=== PATIENT | male | born 1980 | race Caucasian/White ===

== ENCOUNTER 2016-10-11 12:45 | Emergency (ER) | payer OTHER ==
[2016-10-11 13:03] VITALS: BP 132/78; PULSE 73; TEMP 98; BMI 28.1
[2016-10-11] MEDS ORDERED: ERYTHROMYCIN 0.5% OPHTHALMIC OINTMENT 3.5 GM TUBE ONE (13:31)
[2016-10-11] MEDS ORDERED: ERYTHROMYCIN 0.5% OPHTHALMIC OINTMENT 3.5 GM TUBE OS ONE (13:33)
--- NOTE | 2016-10-11 13:35 | PDOC ---
History of Present Illness - General Chief Complaint: Eye Problem Stated Complaint: LEFT EYE DISCOMFORT Time Seen by Provider: 10/11/16 13:00 - History of Present Illness Initial Comments: 36 year old male with PMH of anxiety and chronic pain (from sciatica) presenting with left eye pain, injection, and tearing for the past day. He was sanding some aluminum at approximately 13:00 on the day before presentation and then felt some strange sensation/ irritation in his left eye. He washed his eye with water and woke up with some eye irritation and pain that was refractory to further eye washing and Visine administration. He has some blurry vision in his right eye. He denies fevers, chills, nausea, vomiting, eye drainage, or other symptoms. He does not wear contacts or take any antibiotics. 10/11/16 13:30 10/11/16 14:28 10/11/16 14:33 Past History - Past Medical History Allergies/Adverse Reactions: Allergies Allergy/AdvReac Type Severity Reaction Status Date / Time No Known Allergies Allergy Verified 10/11/16 12:48 Home Medications: Ambulatory Orders Buprenorphine HCl/Naloxone HCl [Suboxone 8 mg-2 mg Sl Tablets] 1 each SL TID 07/23 Dextroamphetamine/Amphetamine [Adderall Xr 30 mg Capsule] 60 mg PO DAILY Gabapentin 300 mg PO TID 10/11/16 Ibuprofen 800 mg PO ASDIR 10/11/16 Tizanidine HCl 4 mg PO ASDIR 10/11/16 Psychiatric Problems: Yes (ANXIETY) Other medical history: , HERNIATED DISCS - Psycho/Social/Smoking Cessation Hx Anxiety: No Suicidal Ideation: No Smoking History: Current every day smoker Have you smoked in the past 12 months: Yes Number of Cigarettes Smoked Daily: 20 Information on smoking cessation initiated: Yes 'Breaking Loose' booklet given: 10/11/16 Hx Alcohol Use: No Review of Systems - Review of Systems Constitutional: No: Chills, Diaphoresis, Fever HEENTM: Yes: Eye Pain, Blurred Vision, Tearing Respiratory: No: Cough, Shortness of Breath, Productive cough Cardiac (ROS): No: Chest Pain, Edema ABD/GI: No: Constipated, Diarrhea, Nausea : No: Dysuria, Frequency Musculoskeletal: Yes: Back Pain, Joint Pain Integumentary: No: Bruising, Change in Color Psychiatric: Yes: Anxiety *Physical Exam - Vital Signs Last Vital Signs Temp Pulse Resp BP Pulse Ox 98 F 73 18 132/78 96 10/11/16 12:45 10/11/16 12:45 10/11/16 12:45 10/11/16 12:45 10/11/16 12:45 - Physical Exam General Appearance: Yes: Nourished, Appropriately Dressed. No: Apparent Distress HEENT: positive: EOMI, BROOKS, Normal Voice, Other (Left sided scleral injection with corneal abrasion on superior portion of iris on magnified opthalmic exam along with fluorescein uptake in the same area on wood's lamp exam. Foreign body (0.5 mm piece of aluminum) removed from the upper eye lid after inversion. Visual Acuity OD 20/20 and OS 20/25) Neck: positive: Trachea midline, Normal Thyroid, Supple. negative: Tender, Rigid Respiratory/Chest: positive: Lungs Clear, Normal Breath Sounds. negative: Chest Tender, Respiratory Distress, Accessory Muscle Use Cardiovascular: positive: Regular Rhythm, Regular Rate, S1, S2. negative: Edema , Murmur Gastrointestinal/Abdominal: positive: Normal Bowel Sounds, Flat, Soft. negative : Tender, Organomegaly Musculoskeletal: positive: Normal Inspection Extremity: positive: Normal Inspection, Normal Range of Motion Neurologic: positive: Fully Oriented, Alert, Normal Mood/Affect Procedures - Eye Procedure Antibiotic Oinment/Drps Admin: left eye Progress: Ophthalmic exam revealing foreign body (0.5 mm piece of aluminum) under upper eye lid with corneal abrasion on the superior margin of the iris reveled on wood 's lamp exam with tetracaine and 10/11/16 15:47 10/11/16 15:55 Medical Decision Making - Medical Decision Making 36 year old male with right corneal abrasion and foreign body removed from underside of eye lid. Visual acuity 20/20 OD and 20/25 OS so no urgent need for ophthalmologic consult. Gave Erythromycin ointment and sent home with the rest of bottle and instructions to use over 2 days. 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 10/11/16 17:28 *DC/Admit/Observation/Transfer Diagnosis at time of Disposition: Foreign body of eye, intraocular, Corneal abrasion, left - Discharge Dispostion Disposition: HOME Condition at time of disposition: Stable Admit: No - Patient Instructions Printed Discharge Instructions: DI for Corneal Abrasion Additional Instructions: You were seen for pain in your left eye while you were sanding some aluminum. We did an eye exam and saw a corneal abrasion on the upper part of your eye. We also removed a small piece of aluminum from underneath your upper eye lid. We gave you a TDAP booster and erythromycin eye ointment. Please use the ointment twice a day for two days. You can use it more than twice a day if you are still having pain. Your pain shoudl resolve within a day or two. 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 Please return to the ED if you notice fevers, worsening eye pain, swelling, or puss coming from that eye. - Attestations Physician Attestion: I, Dr. Isaura Riggs, attest that this document has been prepared under my direction and personally reviewed by me in its entirety. I further attest, that it accurately reflects all work, treatment, procedures and medical decision -making performed by me. 10/11/16 13:36 10/11/16 13:45
[2016-10-11] MEDS ORDERED: DIPHTH,PERTUSS(ACELL),TET 0.5 ML DISP.SYRIN IM ONE (13:40)
--- NOTE | 2016-10-11 13:44 | PDOC ---
Attending Attestation - Resident Resident Name: Isaura Riggs - ED Attending Attestation I have performed the following: I have examined & evaluated the patient, The case was reviewed & discussed with the resident, I agree w/resident's findings & plan - HPI HPI: 10/11/16 13:37 was welding yesterday, got something in his left eye, has FB sensation - Physicial Exam PE: 10/11/16 13:38 acuity 20/20 right 20/25 -1 right fluorescein exam with scratch to cornea on upper margin of cornea at 12 o'clock , no FB in cornea on magnified exam upper lid eversion with tiny marbin of aluminum found, removed with a swab erythromycin ointment given - Medical Decision Making 10/11/16 13:42 corneal abrasion from small marbin of aluminum in conjunctival sac FB removed, erythro ointment applied advised to see ophtho for follow up on Thursday
== END 2016-10-11 13:50 | disposition home or self-care (01) ==
LOC: FER 12:45
PROC: 3E0234Z Introduction of Serum, Toxoid and Vaccine into Muscle, Percutaneous Approach (ICD-10-PCS; principal; 2016-10-11)
DX: S05.02XA Injury of conjunctiva and corneal abrasion without foreign body, left eye, initial encounter (principal); X58.XXXA Exposure to other specified factors, initial encounter; Y93.9 Activity, unspecified; Y92.9 Unspecified place or not applicable; T15.92XA Foreign body on external eye, part unspecified, left eye, initial encounter
CPT/HCPCS: 90715; 99283-25